=== PATIENT | female | born 1965 | race Two or more races ===

== ENCOUNTER → 2016-11-04 14:18 | Emergency (ER) | payer BC ==
[~2016-11-04 14:18] MED LIST: Cyclobenzaprine TAB* 10 MG PO ONE; HYDROcodone/ACETAMIN 5-325 MG* 1 TAB PO ONE
[2016-11-04 18:12] LABS: Urine Bacteria Absent (Absent); Urine Bilirubin Negative (Negative); Urine Glucose Negative (Negative); Urine Nitrite Negative (Negative)
--- NOTE | 2016-11-04 18:48 | ED ---
Nancy Peralta Rebecca, scribed for Cassi Sanders MD on 11/04/16 at 1645 . Back Pain - HPI Summary HPI Summary: Pt is a 51 y/o F who presents to ED c/o R lumbar back pain. Sx began 3 weeks ago after she bent down and lifted something up and has been intermittent since onset. Pain is currently severe, ranked 8/10 and does not radiate down the LE. Has not taken any pain medication. Sx aggravated by walking and standing, alleviated by nothing. Additionally c/o intermittently malodorous and green urine. Denies dysuria, fever, N/V, tingling and numbness. PMHx back pain. - History of Current Complaint Chief Complaint: EDBackInjuryPain Stated Complaint: RT SIDED BACK PAIN Hx Obtained From: Patient Onset/Duration: Lasting Weeks - 3 weeks, Still Present Onset/Duration: Still Present Timing: Intermittent Back Pain Location: Is Discrete @ - R lumbar back Severity Currently: Severe Pain Intensity: 8 Pain Scale Used: 0-10 Numeric Aggravating Symptom(s): Walking Alleviating Symptom(s): Nothing Associated Signs And Symptoms: Positive: Other - intermittently malodorous and green urine. Negative: Fever, Numbness, Tingling - Allergies/Home Medications Allergies/Adverse Reactions: Allergies Allergy/AdvReac Type Severity Reaction Status Date / Time No Known Allergies Allergy Verified 04/18/16 14:16 PMH/Surg Hx/FS Hx/Imm Hx Endocrine/Hematology History: Denies: Hx Diabetes Cardiovascular History: Denies: Hx Hypertension, Hx Pacemaker/ICD History: Denies: Hx Renal Disease Sensory History: Denies: Hx Hearing Aid Psychiatric History: Denies: Hx Panic Disorder - Cancer History Hx Chemotherapy: No Hx Radiation Therapy: No - Surgical History Surgery Procedure, Year, and Place: appendix, hysterectomy Infectious Disease History: No Infectious Disease History: Denies: Traveled Outside the [place] in Last 30 Days - Family History Known Family History: Positive: Hypertension, Diabetes - Social History Alcohol Use: None Substance Use Type: Reports: None Smoking Status (MU): Never Smoked Tobacco Review of Systems Negative: Fever Negative: Vomiting, Nausea Positive: other - Intermittently malodorous and green urine. Negative: dysuria Positive: Arthralgia - Intermittent R lumbar back pain for 3 weeks Neurological: Other - NEGATIVE: tingling Negative: Numbness All Other Systems Reviewed And Are Negative: Yes Physical Exam - Summary Physical Exam Summary: General: Well appearing, no pain distress Skin: Warm, Skin Color Reflects Adequate Perfusion, Dry Eyes: EOMI, NAN ENT: Pharynx normal, TMs normal Neck: Supple, nontender Respiratory: CTA, breath sounds present, no rhonchi, no wheezes, no rales Cardiovascular: RRR, no murmur, no rub, no gallop Abdomen: Soft, nontender, Non-distended, no guarding, no rebound Bowel: Present Musculoskeletal: RAFAL, No edema, R flank tenderness Neuro: Sensory/motor intact, A&Ox3, CN intact 2-12 Psych: Affect/mood appropriate Triage Information Reviewed: Yes Vital Signs On Initial Exam: Initial Vitals Temp Pulse Resp BP Pulse Ox 97.2 F 81 18 109/56 97 11/04/16 14:21 11/04/16 14:21 11/04/16 14:21 11/04/16 14:21 11/04/16 14:21 Vital Signs Reviewed: Yes Diagnostics - Vital Signs Vital Signs Temp Pulse Resp BP Pulse Ox 11/04/16 15:58 97.7 F 69 16 106/61 99 11/04/16 14:21 97.2 F 81 18 109/56 97 - Laboratory Lab Results: Lab Results 11/04/16 Range/Units 17:55 Urine Color Yellow Urine Appearance Clear Urine pH 5.0 (5-9) Ur Specific [place] 1.020 (1.010-1.030) Urine Protein Negative (Negative) Urine Ketones Negative (Negative) Urine Blood Negative (Negative) Urine Nitrate Negative (Negative) Urine Bilirubin Negative (Negative) Urine Urobilinogen Negative (Negative) Ur Leukocyte Esterase Trace H (Negative) Urine WBC (Auto) Trace(0-5/hpf) (Absent) Urine RBC (Auto) Absent (Absent) Ur Squamous Epith Cells Present H (Absent) Urine Bacteria Absent (Absent) Urine Glucose Negative (Negative) Lab Statement: Any lab studies that have been ordered have been reviewed, and results considered in the medical decision making process. Re-Evaluation - Re-Evaluation First Eval Re-Evaluation Time: 18:43 Change: Improved Comment: Discussed D/C plan with the pt. Back Pain Course/Dx - Course Course Of Treatment: 51 yo female with history of back pain who reached down in the fridge and has had pain ever since. she got concerned pain might be due to a uti although she doesn't have dysuria, her ua was negative. Pt is neurologically intact nrl dorsiflexion of great toe, normal hip flexor strength and nl dtr's - Diagnoses Provider Diagnoses: Back pain Discharge - Discharge Plan Condition: Stable Disposition: HOME Prescriptions: Cyclobenzaprine TAB* [Flexeril 10 MG TAB*] 10 mg PO TID PRN #20 tab PRN Reason: Spasms HYDROcodone/ACETAMIN 5-325 MG* [[place] 5-325 TAB*] 1 tab PO Q8H PRN #14 tab MDD 3 PRN Reason: Pain Patient Education Materials: Back Pain (ED) Referrals: Tawanna Jameson MD [Primary Care Provider] - 3 Days The documentation as recorded by the Nancy wills Rebecca accurately reflects the service I personally performed and the decisions made by me, Cassi Sanders MD.
[2016-11-04 18:52] VITALS: BP 126/70
== END | disposition home or self-care (01) ==
LOC: ED 14:18
DX: M54.5 Low back pain (principal); R39.198 Other difficulties with micturition
CPT/HCPCS: 81003; 81015; 87086; 99282; A9270-GY

== ENCOUNTER 2017-04-28 14:22 | Emergency (ER) | payer BC ==
[2017-04-28 14:39] VITALS: BP 126/75
--- NOTE | 2017-04-28 15:04 | UC ---
FLU HPI - HPI Summary HPI Summary: Pt presents with fever, body aches, and dry cough for 2 days. A friend was recently at her house and dx'd with the flu. Her has also been dx'd with the flu. She has not taken anything for her symptoms. Denies SOB, chest pain, abdominal pain, n/v/d/c. - History of Current Complaint Chief Complaint: UCRespiratory Stated Complaint: RESP ISSUE CHILLS COUGH Time Seen by Provider: 04/28/17 14:53 Hx Obtained From: Patient Onset/Duration: Sudden Onset Severity Currently: Moderate Severity Initially: Moderate Pain Intensity: 8 Pain Scale Used: 0-10 Numeric Associated Signs & Symptoms: Positive: Fever - Allergy/Home Medications Allergies/Adverse Reactions: Allergies Allergy/AdvReac Type Severity Reaction Status Date / Time No Known Allergies Allergy Verified 04/28/17 14:39 PMH/Surg Hx/FS Hx/Imm Hx Previously Healthy: Yes - Surgical History Surgical History: Yes Surgery Procedure, Year, and Place: appendix, hysterectomy - Family History Known Family History: Positive: Hypertension, Diabetes - Social History Lives: With Family Alcohol Use: None Substance Use Type: None Smoking Status (MU): Never Smoked Tobacco Review of Systems Constitutional: Fever, Fatigue, Other - Body aches Skin: Negative Eyes: Negative ENT: Negative Respiratory: Cough Cardiovascular: Negative Gastrointestinal: Negative Musculoskeletal: Negative Neurological: Negative Psychological: Negative All Other Systems Reviewed And Are Negative: Yes Physical Exam Triage Information Reviewed: Yes Appearance: No Pain Distress, Well-Nourished, Ill-Appearing Vital Signs: Initial Vital Signs Temp 100.5 F 04/28/17 14:35 Pulse 86 04/28/17 14:35 Resp 18 04/28/17 14:35 BP 126/75 04/28/17 14:35 Pulse Ox 100 04/28/17 14:35 Vital Signs Reviewed: Yes Eyes: Positive: Conjunctiva Clear. Negative: Conjunctiva Inflamed, Discharge ENT: Positive: Hearing grossly normal, Pharynx normal, TMs normal, Uvula midline. Negative: Pharyngeal erythema, Nasal congestion, Nasal drainage, TM bulging, TM dull, TM red, Tonsillar swelling, Tonsillar exudate, Hoarse voice, Sinus tenderness Neck: Positive: Supple, Nontender, No Lymphadenopathy Respiratory: Positive: Chest non-tender, Lungs clear, Normal breath sounds, No respiratory distress, No accessory muscle use Cardiovascular: Positive: RRR, No Murmur, Pulses Normal Neurological: Positive: Alert, Fatigued Psychological: Positive: Age Appropriate Behavior Skin: Negative: rashes Flu Course/Dx - Course Course Of Treatment: POC flu swab was negative, but given her presentation and sick contacts - will treat with Tamiflu. - Differential Dx/Diagnosis Provider Diagnoses: Influenza Discharge - Discharge Plan Condition: Stable Disposition: HOME Prescriptions: Albuterol HFA INHALER* [Ventolin HFA Inhaler*] 1 - 2 puff INH Q6H PRN #1 mdi PRN Reason: Cough Oseltamivir CAP* [Tamiflu CAP*] 75 mg PO BID #10 cap Patient Education Materials: Influenza (ED) Referrals: Tawanna Jameson MD [Primary Care Provider] - Additional Instructions: If you develop a fever, shortness of breath, chest pain, new or worsening symptoms - please call your PCP or go to the ED. 1) May take 600mg Ibuprofen every 6-8hours as needed for fever and generalized discomfort.
== END 2017-04-28 15:25 | disposition home or self-care (01) ==
LOC: UCEAST 14:22
DX: J11.1 Influenza due to unidentified influenza virus with other respiratory manifestations (principal)
CPT/HCPCS: 87502; 99212; G0463

== ENCOUNTER 2017-04-29 22:24 | Emergency (ER) | payer BC ==
[2017-04-30] MEDS ORDERED: Albuterol/Ipratropium NEB.SOL* Albuterol 2.5 MG/Ipratropium 0.5 MG 3 ML INH ONE (02:03)
[2017-04-30] MEDS ORDERED: Ibuprofen TAB* 800 MG PO ONE (02:04)
[2017-04-30 03:27] VITALS: BP 118/62
--- NOTE | 2017-04-30 08:20 | RAD ---
INDICATION: Cough COMPARISON: April 16, 2010 TECHNIQUE: A single PA view was obtained. FINDINGS: Bones/Soft Tissues: There are no acute bony findings. Cardiomediastinal: The cardiomediastinal silhouette is normal. Lungs: There are no infiltrates. Pleura: There are no pleural effusions. Other: None IMPRESSION: NEGATIVE EXAMINATION.
--- NOTE | 2017-05-01 21:04 | ED ---
Alexandra Peralta Edward, scribed for Nano Reed MD on 04/30/17 at 0136 . Respiratory - HPI Summary HPI Summary: 52 y/o female presents to the ED c/o flu-like sx described as chills, cough and shivering starting four days ago, not resolved. Sx not aggravated or alleviated by anything. Pt was seen at several days ago for these sx, given medications and an inhaler. Pt is now wheezing. - History of Current Complaint Chief Complaint: EDUpperRespComplaint Stated Complaint: COUGH/WEAKNESS Time Seen by Provider: 04/30/17 01:28 Hx Obtained From: Patient Onset/Duration: Lasting Days Pain Intensity: 8 Character: Wheezing Aggravating Factor(s): Nothing Alleviating Factor(s): Nothing Associated Signs and Symptoms: Wheezing, Chills - Allergy/Home Medications Allergies/Adverse Reactions: Allergies Allergy/AdvReac Type Severity Reaction Status Date / Time No Known Allergies Allergy Verified 04/28/17 14:39 PMH/Surg Hx/FS Hx/Imm Hx Previously Healthy: No Endocrine/Hematology History: Denies: Hx Diabetes Cardiovascular History: Denies: Hx Hypertension, Hx Pacemaker/ICD Respiratory History: Reports: Hx Seasonal Allergies History: Denies: Hx Renal Disease Musculoskeletal History: Reports: Hx Back Problems Sensory History: Denies: Hx Hearing Aid Psychiatric History: Denies: Hx Panic Disorder - Cancer History Hx Chemotherapy: No Hx Radiation Therapy: No - Surgical History Surgery Procedure, Year, and Place: appendix, hysterectomy Infectious Disease History: No Infectious Disease History: Denies: Traveled Outside the [place] in Last 30 Days - Family History Known Family History: Positive: Hypertension, Diabetes - Social History Alcohol Use: None Substance Use Type: Reports: None Smoking Status (MU): Never Smoked Tobacco Review of Systems Positive: Chills Eyes: Negative ENT: Negative Cardiovascular: Negative Positive: Cough - wheezing Gastrointestinal: Negative Genitourinary: Negative Musculoskeletal: Negative Skin: Negative Neurological: Negative Psychological: Normal All Other Systems Reviewed And Are Negative: Yes Physical Exam - Summary Physical Exam Summary: VITAL SIGNS: Reviewed. GENERAL: Patient is a well-developed and nourished female who is lying comfortable in the stretcher. Patient is not in any acute respiratory distress. HEAD AND FACE: No signs of trauma. No ecchymosis, hematomas or skull depressions. No sinus tenderness. EYES: PERRLA, EOMI x 2, No injected conjunctiva, no nystagmus. EARS: Hearing grossly intact. Ear canals and tympanic membranes are within normal limits. MOUTH: Oropharynx within normal limits. NECK: Supple, trachea is midline, no adenopathy, no JVD, no carotid bruit, no c- spine tenderness, neck with full ROM. CHEST: Symmetric, no tenderness at palpation LUNGS: Clear to auscultation bilaterally. No wheezing or crackles. CVS: Regular rate and rhythm, S1 and S2 present, no murmurs or gallops appreciated. ABDOMEN: Soft, non-tender. No signs of distention. No rebound no guarding, and no masses palpated. Bowel sounds are normal. EXTREMITIES: FROM in all major joints, no edema, no cyanosis or clubbing. NEURO: Alert and oriented x 3. No acute neurological deficits. Speech is normal and follows commands. SKIN: Dry and warm Triage Information Reviewed: Yes Vital Signs On Initial Exam: Initial Vitals Temp Pulse Resp BP Pulse Ox 99.1 F 85 18 131/77 97 04/29/17 22:33 04/29/17 22:33 04/29/17 22:33 04/29/17 22:33 04/29/17 22:33 Vital Signs Reviewed: Yes Diagnostics - Vital Signs Vital Signs Temp Pulse Resp BP Pulse Ox 04/29/17 22:33 99.1 F 85 18 131/77 97 - Laboratory Lab Statement: Any lab studies that have been ordered have been reviewed, and results considered in the medical decision making process. - Additional Comments Diagnostic Additional Comments: EKG - 01:14 - Sinus Rhythm @ 87 BPM. Normal axis, normal interval, no ST changes. Disposition - Course Assessment/Plan: 52 y/o female presents to the ED with cough and flu-like symptoms. CXR negative. Pt will be d/c home with f/u with PCP. - Diagnoses Provider Diagnoses: Viral syndrome Discharge - Discharge Plan Condition: Stable Disposition: HOME Patient Education Materials: Viral Syndrome (ED) Referrals: Tawanna Jameson MD [Primary Care Provider] - 4 Days (PLEASE F/U IN 3-5 DAYS) Additional Instructions: PLEASE RETURN TO THE ED FOR RETURN OR WORSENING OF SYMPTOMS The documentation as recorded by the Alexandra wills Edward accurately reflects the service I personally performed and the decisions made by Derek nielsen Abdul, MD.
== END 2017-04-30 03:27 | disposition home or self-care (01) ==
LOC: ED 22:24
DX: B34.9 Viral infection, unspecified (principal); R06.2 Wheezing; R05 Cough
CPT/HCPCS: 71045; 93005; 94640; 94760; 99282; A9270-GY

== ENCOUNTER 2017-10-26 17:03 | Emergency (ER) | payer SELFPAY ==
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
[2017-10-26 18:38] VITALS: BP 134/87
== END 2017-10-26 18:35 | disposition home or self-care (01) ==
LOC: ED 17:03
DX: S16.1XXA Strain of muscle, fascia and tendon at neck level, initial encounter (principal); V43.52XA Car driver injured in collision with other type car in traffic accident, initial encounter; Y93.89 Activity, other specified; Y92.410 Unspecified street and highway as the place of occurrence of the external cause; R07.89 Other chest pain; R51 Headache; M50.322 Other cervical disc degeneration at C5-C6 level; Z82.49 Family history of ischemic heart disease and other diseases of the circulatory system; Z83.3 Family history of diabetes mellitus
CPT/HCPCS: 72125; 99282

== ENCOUNTER 2018-10-13 18:33 | Emergency (ER) | payer BC ==
[2018-10-13 18:45] VITALS: BP 113/68
--- NOTE | 2018-10-13 18:59 | UC ---
Throat Pain/Nasal Mario HPI - HPI Summary HPI Summary: Sore throat began yesterday - History of Current Complaint Chief Complaint: UCRespiratory Stated Complaint: SORE THROAT Time Seen by Provider: 10/13/18 18:39 Hx Obtained From: Patient Hx Last Menstrual Period: post menopausal ?: No Onset/Duration: Sudden Onset Severity: Moderate Pain Intensity: 5 Pain Scale Used: 0-10 Numeric Cough: None Associated Signs & Symptoms: Positive: Negative - Allergies/Home Medications Allergies/Adverse Reactions: Allergies Allergy/AdvReac Type Severity Reaction Status Date / Time No Known Allergies Allergy Verified 10/13/18 18:45 Home Medications: Home Medications Cholecalciferol (Vitamin D3) [Vitamin D3] 1,000 unit PO DAILY 10/13/18 [History Confirmed 10/13/18] PMH/Surg Hx/FS Hx/Imm Hx Previously Healthy: Yes - Surgical History Surgical History: Yes Surgery Procedure, Year, and Place: appendix, hysterectomy - Family History Known Family History: Positive: Hypertension, Diabetes - Social History Occupation: Works From/At Home Lives: With Family Alcohol Use: None Substance Use Type: None Smoking Status (MU): Never Smoked Tobacco Review of Systems All Other Systems Reviewed And Are Negative: Yes Constitutional: Positive: Negative Skin: Positive: Negative Eyes: Positive: Negative ENT: Positive: Sore Throat Respiratory: Positive: Negative Cardiovascular: Positive: Negative Gastrointestinal: Positive: Negative Genitourinary: Positive: Negative Motor: Positive: Negative Neurovascular: Positive: Negative Musculoskeletal: Positive: Negative Neurological: Positive: Negative Psychological: Positive: Negative Is Patient Immunocompromised?: No Physical Exam Triage Information Reviewed: Yes Appearance: Well-Appearing, No Pain Distress, Well-Nourished Vital Signs: Initial Vital Signs Temp 97.7 F 10/13/18 18:40 Pulse 73 10/13/18 18:40 Resp 16 10/13/18 18:40 BP 113/68 10/13/18 18:40 Pulse Ox 98 10/13/18 18:40 Vital Signs Reviewed: Yes Eye Exam: Normal Eyes: Positive: Conjunctiva Clear ENT Exam: Normal ENT: Positive: Normal ENT inspection, Hearing grossly normal, Pharynx normal, Nasal congestion, TMs normal, Uvula midline. Negative: Trismus, Muffled voice, Hoarse voice, Sinus tenderness Dental Exam: Normal Neck exam: Normal Neck: Positive: Supple, Nontender, No Lymphadenopathy Respiratory Exam: Normal Respiratory: Positive: Chest non-tender, Lungs clear, Normal breath sounds, No respiratory distress, No accessory muscle use Cardiovascular Exam: Normal Cardiovascular: Positive: RRR, No Murmur, Pulses Normal, Brisk Capillary Refill Musculoskeletal Exam: Normal Musculoskeletal: Positive: Strength Intact, ROM Intact, No Edema Neurological Exam: Normal Neurological: Positive: Alert, Muscle Tone Normal Psychological Exam: Normal Skin Exam: Normal Diagnostics - Laboratory Lab Results: RST (-) Throat Pain/Nasal Course/Dx - Course Course Of Treatment: continue with claitin, tylenol, ibuprofen for pain follow with pcp prn - Differential Dx/Diagnosis Provider Diagnosis: Sore throat, PND (post-nasal drip) Discharge - Sign-Out/Discharge Documenting (check all that apply): Patient Departure All imaging exams completed and their final reports reviewed: No Studies - Discharge Plan Condition: Stable Disposition: HOME Patient Education Materials: Postnasal Drip (DC) Referrals: Tawanna Jameson MD [Primary Care Provider] - If Needed Additional Instructions: Continue with Claritin follow with pcp prn - Billing Disposition and Condition Condition: STABLE Disposition: Home - Attestation Statements Provider Attestation: Per institutional requirements, I have reviewed the chart, however, I was not consulted specifically or made aware of this patient by the midlevel provider. I did not personally evaluate, interact with , or disposition this patient.
== END 2018-10-13 19:17 | disposition home or self-care (01) ==
LOC: UCEAST 18:33
DX: J02.9 Acute pharyngitis, unspecified (principal); R09.82 Postnasal drip
CPT/HCPCS: 87651; 99211; G0463